=== PATIENT | male | born 1965 | race Caucasian/White ===

== ENCOUNTER 2018-08-16 11:14 | Inpatient (IN) | payer OTHER ==
[~2018-08-16] VITALS: Ht 177.8 cm; Wt 72.6 kg
[2018-08-16] MEDS ORDERED: TRAMADOL HCL50 MG (11:25)
[2018-08-16] MEDS ORDERED: DURAGESIC1 EAC1 (11:25)
== END 2018-08-21 13:33 | disposition home or self-care (01) | DRG 812 ==
LOC: ER 11:14 → SURG 21:47
PROVIDERS: ADMIT Internal Medicine
PROC: 30233N1 Transfusion of Nonautologous Red Blood Cells into Peripheral Vein, Percutaneous Approach (ICD-10-PCS; principal; 2018-08-16)
PROC: B246ZZZ Ultrasonography of Right and Left Heart (ICD-10-PCS; 2018-08-17)
PROC: BR39ZZZ Magnetic Resonance Imaging (MRI) of Lumbar Spine (ICD-10-PCS; 2018-08-17)
PROC: BR37ZZZ Magnetic Resonance Imaging (MRI) of Thoracic Spine (ICD-10-PCS; 2018-08-17)
DX: D50.0 Iron deficiency anemia secondary to blood loss (chronic) (principal); C64.1 Malignant neoplasm of right kidney, except renal pelvis; C78.02 Secondary malignant neoplasm of left lung; C78.01 Secondary malignant neoplasm of right lung; C79.51 Secondary malignant neoplasm of bone; N17.8 Other acute kidney failure; G89.3 Neoplasm related pain (acute) (chronic); D63.0 Anemia in neoplastic disease; E86.0 Dehydration
CPT/HCPCS: 72146; 72158